=== PATIENT | female | born 1945 | race Caucasian/White ===

== ENCOUNTER → 2025-07-21 | Emergency (ER) | payer MEDICARE, BC ==
[~2025-07-21] VITALS: Ht 172.7 cm; Wt 68.0 kg
[2025-07-21 21:24] VITALS: BP 138/70; TEMP 98.5; O2SAT 96
== END | disposition left against medical advice (07) ==
LOC: ER 21:12
DX: M25.569 Pain in unspecified knee (principal); Z53.21 Procedure and treatment not carried out due to patient leaving prior to being seen by health care provider